=== PATIENT | female | born 1990 | race American Indian/Alaskan Native ===

== ENCOUNTER 2016-11-03 11:34 | Emergency (ER) | payer MEDICAID ==
[2016-11-03 11:47] VITALS: BP 124/81
--- NOTE | 2016-11-03 14:33 | Emergency Department Report ---
Abscess Boil HPI - HPI Chief Complaint: Skin/Abscess/Foreign Body Stated Complaint: RT BREAST SORE Time Seen by Provider: 11/03/16 13:50 Duration: 2 Days Location: Chest Severity: None History: No Fever, No Pain, No Purulent Drainage, No Numbness, No Foreign Body, No Previous History, No Insect Bite HPI: This is a 26 old female well-nourished with nontoxic or ill in appearance that complains of a cyst to her right chest area for the past 2 days. Patient stated history of a cyst to the abdomen area that was I&D. Patient denies any pus, drainage, fever, chills, pain, numbness or sensation extremities. Patient denies any chest pain or shortness of breath. Denies abdominal pain. Patient stated allergies to clindamycin, sulfa, and vancomycin. Home Medications: Previous Rx's Medication Instructions Recorded Last Taken Type Cephalexin [Keflex] 500 mg PO Q12HR 5 Days 11/03/16 Unknown Rx Allergies/Adverse Reactions: Allergies Allergy/AdvReac Type Severity Reaction Status Date / Time clindamycin AdvReac Hives Verified 11/03/16 11:49 Sulfa (Sulfonamide AdvReac Headache Verified 11/03/16 11:49 Antibiotics) vancomycin AdvReac Shortness Verified 11/03/16 11:49 of Breath ED Review of Systems ROS: Stated complaint: RT BREAST SORE Other details as noted in HPI Constitutional: denies: chills, fever Eyes: denies: eye pain, eye discharge, vision change ENT: denies: ear pain, throat pain Respiratory: denies: cough, shortness of breath, wheezing Cardiovascular: denies: chest pain, palpitations Endocrine: no symptoms reported Gastrointestinal: denies: abdominal pain, nausea, diarrhea Genitourinary: denies: urgency, dysuria, discharge Musculoskeletal: denies: back pain, joint swelling, arthralgia Skin: denies: rash, lesions Neurological: denies: headache, weakness, paresthesias Psychiatric: denies: anxiety, depression Hematological/Lymphatic: denies: easy bleeding, easy bruising ED Past Medical Hx - Past Medical History Previous Medical History?: No - Surgical History Past Surgical History?: Yes Additional Surgical History: x2 - Social History Smoking Status: Current Every Day Smoker Substance Use Type: None - Medications Home Medications: Home Medications Medication Instructions Recorded Confirmed Last Taken Type Cephalexin [Keflex] 500 mg PO Q12HR 5 Days 11/03/16 Unknown Rx ED Abscess Boil Physical Exam - Exam General: Vital signs noted. No distress. Alert and acting appropriately. GENERAL: The patient is a well-developed, well-nourished male in no apparent distress. Patient is alert and oriented x3. VITAL SIGNS: Stable HEENT: Head is normocephalic and atraumatic. Extraocular muscles are intact. Pupils are equal, round, and reactive to light and accommodation. Nares appeared normal. Mouth is well hydrated and without lesions. Mucous membranes are moist. Posterior pharynx clear of any exudate or lesions. NECK: Supple. No carotid bruits. No lymphadenopathy or thyromegaly. LUNGS: Clear to auscultation. HEART: Regular rate and rhythm without murmur. ABDOMEN: Soft, nontender, and nondistended. Positive bowel sounds. No hepatosplenomegaly was noted. EXTREMITIES: Without any cyanosis, clubbing, rash, lesions or edema. NEUROLOGIC: Cranial nerves II through XII are grossly intact. PSYCHIATRIC: Normal affect with no suicidal or homicidal ideations. SKIN: No ulceration or induration present. 0.5 cm nodular cyst with slight erythematous and no fluctuance Front/Back of Body, Lg (Color): 1 - 0.5 cm nodular cyst with slight erythematous and no fluctuance Exam: Yes Normal Neurologic Exam, Yes Normal Circulation, No Tenderness, No Fluctuance, No Surrounding Cellulites/Erythema, No Lymphangitis, No Crepitation , No Heart Murmur Exam: A 0.5 cm nodular cyst with no fluctuance to the right chest area underneath breast near the breast janny area. No erythema. No pus. No boil present. No drainage. Nontender to touch. ED Course Vital Signs 11/03/16 11:43 Temperature 98.3 F Pulse Rate 85 Respiratory 18 Rate Blood Pressure 124/81 O2 Sat by Pulse 100 Oximetry Critical care attestation.: If time is entered above; I have spent that time in minutes in the direct care of this critically ill patient, excluding procedure time. ED Medical Decision Making - Medical Decision Making ED course: This is a 26 erythema that presents with a 0.5 cm nodular cyst. 1- after my physical exam, patient has been prescribed Bactrim for 5 days due to hx of multiple I/D of boils. Patient stated she wants to prevent it from becoming bigger and having an I/D. From my physical exam there is no signs of a pus formation that needs to be drained or aspirated. 2- Patient was instrcuted to observe the area carefully for signs of an abscess such as increasing swelling, pus, drainage, redness, fever, chill, and to report back to ER if these symptoms are present. 3- Patient was also instrcuted to follow-up with her PCP in 3-5 days. 4- at time time of discharge, the patient does not seem toxic or ill in appearance. No acute signs of distress noted. Patient agrees to discharge treatment plan of care. No further questions noted by the patient. ED Disposition Clinical Impression: Epidermoid cyst of skin of chest Disposition: DISCHARGED TO HOME OR SELFCARE Is pt being admited?: No Does the pt Need Aspirin: No Condition: Stable Additional Instructions: Observe the area carefully for signs of an abscess such as increasing swelling, pus, drainage, redness, fever, chill, and to report back to ER if these symptoms are present. Follow-up with her primary care doctor in 3-5 days. Take full course of Bactrim as prescribed. Prescriptions: Cephalexin [Keflex] 500 mg PO Q12HR 5 Days Referrals: VIVIANA HERNANDEZ MD [Primary Care Provider] - 3-5 Days [facility] [Outside] - 3-5 Days [facility] [Outside] - 3-5 Days Forms: Work/School Release Form(ED)
== END 2016-11-03 14:57 | disposition home or self-care (01) ==
LOC: ED 11:34
DX: L72.8 Other follicular cysts of the skin and subcutaneous tissue (principal); F17.200 Nicotine dependence, unspecified, uncomplicated
CPT/HCPCS: 99281

== ENCOUNTER 2017-07-22 06:23 | Emergency (ER) | payer MEDICAID ==
[2017-07-22 06:33] VITALS: BP 126/62
--- NOTE | 2017-07-22 09:56 | Emergency Department Report ---
Minor Respiratory - HPI Chief Complaint: Upper Respiratory Infection Stated Complaint: FLU SYMPTOMS Time Seen by Provider: 07/22/17 09:31 Minor Respiratory: Yes Rhinorrhea, Yes Sore Throat (mild), Yes Able to Tolerate Fluids, Yes Fever, No Ear Pain, No Cough, No Sick Contacts, No Hemoptysis, No Chest Pain, No Shortness of Breath Other History: Patient is a 26-year-old [place] female who is presenting with sinus tenderness cough cold congestion for approximate 5 days. Patient states she has had subjective fevers but has not taken her temperature today to know the number. Patient denies nausea vomiting diarrhea or body aches. Patient does have a cough that is productive of clear sputum. ED Review of Systems ROS: Stated complaint: FLU SYMPTOMS Other details as noted in HPI Constitutional: denies: chills, fever Eyes: denies: eye pain, eye discharge, vision change ENT: denies: ear pain, throat pain Respiratory: denies: cough, shortness of breath, wheezing Cardiovascular: denies: chest pain, palpitations Endocrine: no symptoms reported Gastrointestinal: denies: abdominal pain, nausea, diarrhea Genitourinary: denies: urgency, dysuria, discharge Musculoskeletal: denies: back pain, joint swelling, arthralgia Skin: denies: rash, lesions Neurological: denies: headache, weakness, paresthesias Psychiatric: denies: anxiety, depression Hematological/Lymphatic: denies: easy bleeding, easy bruising ED Past Medical Hx - Past Medical History Previous Medical History?: Yes Hx Hypertension: Yes Hx Asthma: Yes - Surgical History Past Surgical History?: Yes Additional Surgical History: x2. - Social History Smoking Status: Current Every Day Smoker Substance Use Type: Alcohol - Medications Home Medications: Home Medications Medication Instructions Recorded Confirmed Last Taken Type Cephalexin [Keflex] 500 mg PO Q12HR 5 Days cap 11/03/16 Unknown Rx Amoxicillin/Potassium Clav 1 each PO BID #20 tablet 07/22/17 Unknown Rx [Augmentin 875-125 Tablet] Fluticasone [Flonase] 1 spray NS QDAY #1 bottle 07/22/17 Unknown Rx HYDROcodone/APAP 5-325 [[place] 1 each PO Q6HR PRN #12 tablet 07/22/17 Unknown Rx 5/325] predniSONE [Deltasone] 20 mg PO QDAY #5 tab 07/22/17 Unknown Rx Minor Respiratory Exam - Exam General: Vital signs noted. No distress. Alert and acting appropriately. HEENT: Yes Moist Mucous Membranes, Yes Frontal Tenderness, Yes Maxillary Tenderness, No Pharyngeal Erythema, No Pharyngeal Exudates, No Rhinorrhea, No Conjuctival Injection Ear: Neither TM Bulge, Neither TM Erythema, Neither EAC Pain, Neither EAC Discharge Neck: Yes Supple, No Adenopathy Lungs: Yes Good Air Exchange, No Wheezes, No [place], No Stridor, No Cough, No Labored Respirations, No Retractions, No Use of Accessory Muscles, No Other Abnormal Lung Sounds Heart: Yes Regular, No Murmur Abdomen: Yes Normal Bowel Sounds, No Tenderness, No Peritoneal Signs Skin: No Rash, No Edema Neurologic: Alert and oriented, no deficits. Musculoskeletal: Unremarkable. ED Course Vital Signs 07/22/17 07/22/17 06:29 06:57 Temperature 98.0 F 98.0 F Pulse Rate 92 H 90 Respiratory 18 18 Rate Blood Pressure 126/62 126/62 O2 Sat by Pulse 100 99 Oximetry ED Medical Decision Making - Medical Decision Making Patient is a 26-year-old black female who is presenting with acute sinusitis type symptoms. Patient's lungs cleared and I believe the patient has pneumonia her vital signs were within normal limits. Patient will be started on Augmentin and other meds for symptomatically relief be discharged home to stop. Critical care attestation.: If time is entered above; I have spent that time in minutes in the direct care of this critically ill patient, excluding procedure time. ED Disposition Clinical Impression: Acute sinusitis Qualifiers: Sinusitis location: maxillary Recurrence: non-recurrent Qualified Code(s): J01.00 - Acute maxillary sinusitis, unspecified Disposition: - TO HOME OR SELFCARE Is pt being admited?: No Does the pt Need Aspirin: No Condition: Stable Instructions: Sinusitis (ED) Prescriptions: Amoxicillin/Potassium Clav [Augmentin 875-125 Tablet] 1 each PO BID #20 tablet Fluticasone [Flonase] 1 spray NS QDAY #1 bottle HYDROcodone/APAP 5-325 [[place] 5/325] 1 each PO Q6HR PRN #12 tablet PRN Reason: Pain predniSONE [Deltasone] 20 mg PO QDAY #5 tab Referrals: PRIMARY CARE,MD [Primary Care Provider] - 3-5 Days
== END 2017-07-22 10:02 | disposition home or self-care (01) ==
LOC: ED 06:23
DX: J01.00 Acute maxillary sinusitis, unspecified (principal); I10 Essential (primary) hypertension; J45.909 Unspecified asthma, uncomplicated; F17.200 Nicotine dependence, unspecified, uncomplicated; Z88.2 Allergy status to sulfonamides; Z88.1 Allergy status to other antibiotic agents

== ENCOUNTER 2017-08-17 08:42 | Emergency (ER) | payer MEDICAID, OTHER ==
[2017-08-17 09:23] LABS: Basophils # (Auto) 0.1 K/mm3 (0.0-0.1); Basophils % (Auto) 0.8 % (0.0-1.8); Eosinophils # (Auto) 0.1 K/mm3 (0.0-0.4); Eosinophils % (Auto) 1.5 % (0.0-4.3); Hematocrit 40.1 % (30.3-42.9); Lymphocytes # (Auto) 2.2 K/mm3 (1.2-5.4); Lymphocytes % (Auto) 34.8 % (13.4-35.0); Mean Corpuscular HGB Conc 32 % (30-34); Mean Corpuscular Hemoglobin 28 pg (28-32); Mean Corpuscular Volume 86 fl (79-97); Monocytes # (Auto) 0.5 K/mm3 (0.0-0.8); Monocytes % (Auto) 7.7 % (0.0-7.3); Platelet Count 245 K/mm3 (140-440); Red Blood Count 4.65 M/mm3 (3.65-5.03); Red Cell Distribution Width 14.3 % (13.2-15.2)
[2017-08-17 09:41] LABS: Alanine Aminotransferase 7 units/L (7-56); Albumin 3.8 g/dL (3.9-5); BUN/Creatinine Ratio 15; Blood Urea Nitrogen 9 mg/dL (7-17); Calcium 8.9 mg/dL (8.4-10.2); Hemolysis Index 7
[2017-08-17 09:43] LABS: Bacteria,Urine 1+ /HPF (Negative); Bilirubin,Urine NEG (Negative); Blood,Urine NEG (Negative); Color,Urine Straw (Yellow); Protein,Urine <15 mg/dL mg/dL (Negative); Urobilinogen,Urine < 2.0 mg/dL (<2.0); WBC,Urine < 1.0 /HPF (0.0-6.0)
--- NOTE | 2017-08-17 10:44 | Emergency Department Report ---
ED Abdominal Pain HPI - General Chief Complaint: Abdominal Pain Stated Complaint: ABD PAIN Time Seen by Provider: 08/17/17 10:43 Source: patient Mode of arrival: Wheelchair Limitations: No Limitations - History of Present Illness Initial Comments: The patient is actually not complaining of abdominal pain. She states that she has some discomfort in her lumbar area of her back. She also complains of multiple joint aches. These symptoms have been going on for a year. She states that there is a positive family history of arthritis in both her mother and her grandmother. She denies any nausea vomiting fever or diarrhea or GI or symptoms. His had no recent fever or chills. She states that she's had symptoms for more than a year. She does not have a primary care provider. MD Complaint: other -: year(s) Location: R flank Radiation: none Migration to: no migration Severity: mild, moderate Quality: aching Consistency: intermittent, now resolved Improves With: nothing Worsens With: nothing - Related Data Previous Rx's Medication Instructions Recorded Last Taken Type Cephalexin [Keflex] 500 mg PO Q12HR 5 Days cap 11/03/16 Unknown Rx Amoxicillin/Potassium Clav 1 each PO BID #20 tablet 07/22/17 Unknown Rx [Augmentin 875-125 Tablet] Fluticasone [Flonase] 1 spray NS QDAY #1 bottle 07/22/17 Unknown Rx HYDROcodone/APAP 5-325 [[place] 1 each PO Q6HR PRN #12 tablet 07/22/17 Unknown Rx 5/325] predniSONE [Deltasone] 20 mg PO QDAY #5 tab 07/22/17 Unknown Rx Naproxen [Naprosyn] 500 mg PO Q12H PRN #14 tablet 08/17/17 Unknown Rx traMADol [Ultram] 50 mg PO Q6HR PRN #14 tablet 08/17/17 Unknown Rx Allergies Allergy/AdvReac Type Severity Reaction Status Date / Time clindamycin AdvReac Hives Verified 11/03/16 11:49 Sulfa (Sulfonamide AdvReac Headache Verified 11/03/16 11:49 Antibiotics) vancomycin AdvReac Shortness Verified 11/03/16 11:49 of Breath ED Review of Systems ROS: Stated complaint: ABD PAIN Other details as noted in HPI Constitutional: denies: chills, fever Eyes: denies: eye pain, eye discharge, vision change ENT: denies: ear pain, throat pain Respiratory: denies: cough, shortness of breath, wheezing Cardiovascular: denies: chest pain, palpitations Endocrine: no symptoms reported Gastrointestinal: abdominal pain. denies: nausea, diarrhea Genitourinary: as per HPI, other. denies: urgency, dysuria, frequency, hematuria, discharge Musculoskeletal: arthralgia. denies: back pain, joint swelling Skin: denies: rash, lesions Neurological: denies: headache, weakness, paresthesias Psychiatric: denies: anxiety, depression Hematological/Lymphatic: denies: easy bleeding, easy bruising ED Past Medical Hx - Past Medical History Previous Medical History?: Yes Hx Hypertension: Yes (During ) Hx Asthma: Yes - Surgical History Additional Surgical History: x2. - Social History Smoking Status: Current Every Day Smoker Substance Use Type: Alcohol - Medications Home Medications: Home Medications Medication Instructions Recorded Confirmed Last Taken Type Cephalexin [Keflex] 500 mg PO Q12HR 5 Days cap 11/03/16 Unknown Rx Amoxicillin/Potassium Clav 1 each PO BID #20 tablet 07/22/17 Unknown Rx [Augmentin 875-125 Tablet] Fluticasone [Flonase] 1 spray NS QDAY #1 bottle 07/22/17 Unknown Rx HYDROcodone/APAP 5-325 [[place] 1 each PO Q6HR PRN #12 tablet 07/22/17 Unknown Rx 5/325] predniSONE [Deltasone] 20 mg PO QDAY #5 tab 07/22/17 Unknown Rx Naproxen [Naprosyn] 500 mg PO Q12H PRN #14 tablet 08/17/17 Unknown Rx traMADol [Ultram] 50 mg PO Q6HR PRN #14 tablet 08/17/17 Unknown Rx ED Physical Exam - General Limitations: No Limitations General appearance: alert, in no apparent distress - Head Head exam: Present: atraumatic, normocephalic - Eye Eye exam: Present: normal appearance, PERRL, EOMI. Absent: scleral icterus, conjunctival injection - ENT ENT exam: Present: mucous membranes moist - Neck Neck exam: Present: normal inspection - Respiratory Respiratory exam: Present: normal lung sounds bilaterally. Absent: respiratory distress - Cardiovascular Cardiovascular Exam: Present: regular rate, normal rhythm. Absent: systolic murmur, diastolic murmur, rubs, gallop - GI/Abdominal GI/Abdominal exam: Present: soft, normal bowel sounds. Absent: distended, tenderness, guarding, rebound, rigid, organomegaly, mass, bruit, pulsatile mass , hernia - Extremities Exam Extremities exam: Present: normal inspection (no active joints no joint swelling.) - Back Exam Back exam: Present: normal inspection. Absent: CVA tenderness (R), CVA tenderness (L), muscle spasm, paraspinal tenderness, vertebral tenderness - Neurological Exam Neurological exam: Present: alert, oriented X3, CN II-XII intact. Absent: motor sensory deficit - Psychiatric Psychiatric exam: Present: normal affect, normal mood - Skin Skin exam: Present: warm, dry, intact, normal color. Absent: rash ED Course Vital Signs 08/17/17 08:43 Temperature 98.2 F Pulse Rate 72 Respiratory 16 Rate Blood Pressure 146/72 O2 Sat by Pulse 100 Oximetry ED Medical Decision Making - Lab Data Result diagrams: 08/17/17 09:05 08/17/17 09:05 Laboratory Results - last 24 hr 08/17/17 08/17/17 08/17/17 08:49 09:05 09:05 WBC 6.5 RBC 4.65 Hgb 13.0 Hct 40.1 MCV 86 MCH 28 MCHC 32 RDW 14.3 Plt Count 245 Lymph % (Auto) 34.8 [place] % (Auto) 7.7 H Eos % (Auto) 1.5 Baso % (Auto) 0.8 Lymph # 2.2 [place] # 0.5 Eos # 0.1 Baso # 0.1 Seg Neutrophils % 55.2 Seg Neutrophils # 3.6 Sodium 139 Potassium 4.2 Chloride 101.1 Carbon Dioxide 26 Anion Gap 16 BUN 9 Creatinine 0.6 L Estimated GFR > 60 BUN/Creatinine Ratio 15 Glucose 88 POC Glucose 96 Calcium 8.9 Total Bilirubin 0.20 AST 10 ALT 7 Alkaline Phosphatase 74 Total Protein 7.0 Albumin 3.8 L Albumin/Globulin Ratio 1.2 Lipase HCG, Qual Urine Color Urine Turbidity Urine pH Ur Specific [place] Urine Protein Urine Glucose (UA) Urine Ketones Urine Blood Urine Nitrite Urine Bilirubin Urine Urobilinogen Ur Leukocyte Esterase Urine WBC (Auto) Urine RBC (Auto) U Epithel Cells (Auto) Urine Bacteria (Auto) 08/17/17 08/17/17 08/17/17 09:05 09:05 09:09 WBC RBC Hgb Hct MCV MCH MCHC RDW Plt Count Lymph % (Auto) [place] % (Auto) Eos % (Auto) Baso % (Auto) Lymph # [place] # Eos # Baso # Seg Neutrophils % Seg Neutrophils # Sodium Potassium Chloride Carbon Dioxide Anion Gap BUN Creatinine Estimated GFR BUN/Creatinine Ratio Glucose POC Glucose Calcium Total Bilirubin AST ALT Alkaline Phosphatase Total Protein Albumin Albumin/Globulin Ratio Lipase 44 HCG, Qual Negative Urine Color Straw Urine Turbidity Clear Urine pH 6.0 Ur Specific [place] 1.003 Urine Protein <15 mg/dl Urine Glucose (UA) Neg Urine Ketones Neg Urine Blood Neg Urine Nitrite Neg Urine Bilirubin Neg Urine Urobilinogen < 2.0 Ur Leukocyte Esterase Neg Urine WBC (Auto) < 1.0 Urine RBC (Auto) 1.0 U Epithel Cells (Auto) 2.0 Urine Bacteria (Auto) 1+ 08/17/17 09:58 WBC RBC Hgb Hct MCV MCH MCHC RDW Plt Count Lymph % (Auto) [place] % (Auto) Eos % (Auto) Baso % (Auto) Lymph # [place] # Eos # Baso # Seg Neutrophils % Seg Neutrophils # Sodium Potassium Chloride Carbon Dioxide Anion Gap BUN Creatinine Estimated GFR BUN/Creatinine Ratio Glucose POC Glucose 93 Calcium Total Bilirubin AST ALT Alkaline Phosphatase Total Protein Albumin Albumin/Globulin Ratio Lipase HCG, Qual Urine Color Urine Turbidity Urine pH Ur Specific [place] Urine Protein Urine Glucose (UA) Urine Ketones Urine Blood Urine Nitrite Urine Bilirubin Urine Urobilinogen Ur Leukocyte Esterase Urine WBC (Auto) Urine RBC (Auto) U Epithel Cells (Auto) Urine Bacteria (Auto) Critical care attestation.: If time is entered above; I have spent that time in minutes in the direct care of this critically ill patient, excluding procedure time. ED Disposition Clinical Impression: Arthralgia Qualifiers: Joint pain location: unspecified Qualified Code(s): M25.50 - Pain in unspecified joint Lower back pain Qualifiers: Chronicity: chronic Back pain laterality: unspecified Sciatica presence: without sciatica Qualified Code(s): M54.5 - Low back pain; G89.29 - Other chronic pain Disposition: TO HOME OR SELFCARE Is pt being admited?: No Does the pt Need Aspirin: No Condition: Stable Instructions: Abdominal Pain (ED), Urinary Tract Infection in Women (ED) Additional Instructions: There are number of things to follow up. YOU DO NEED A GLOVE STITCHER DOCTOR AND A PRIMARY CARE PHYSICIAN. THERE IS A LOCAL PRIMARY CARE CLINIC. Rx for discomfort and antibiotic for urinary tract infection. Return if any increased problem. I would elevate and rest the arm. Avoid repetitive activity. Return to the emergency department any acute change or worsening as needed. Follow up on your urine culture test in 2-3 days Prescriptions: Naproxen [Naprosyn] 500 mg PO Q12H PRN #14 tablet PRN Reason: Pain traMADol [Ultram] 50 mg PO Q6HR PRN #14 tablet PRN Reason: Pain Referrals: PRIMARY CARE, [Primary Care Provider] - 3-5 Days BRENDA ONEAL MD [Staff Physician] - 3-5 Days PRISCILA DOLAN MD [Staff Physician] - 3-5 Days [facility] [Provider Group] - 2-3 Days Time of Disposition: 11:24
[2017-08-17] MEDS ORDERED: XYLOCAINE 1% MPF 5 mL INFILTRATI ONE (11:09)
[2017-08-17] MEDS ORDERED: ROCEPHIN IM ONE (11:09)
[2017-08-17] MEDS ORDERED: NORCO 5/325 PO ONE ×2 (11:10→11:34)
[2017-08-17 11:44] VITALS: BP 126/60
== END 2017-08-17 12:26 | disposition home or self-care (01) ==
LOC: ED 08:42
DX: M54.5 Low back pain (principal); M25.50 Pain in unspecified joint; F17.200 Nicotine dependence, unspecified, uncomplicated
CPT/HCPCS: 36415; 80053; 81001; 82962; 83690; 84703; 85025; J0696

== ENCOUNTER 2017-12-27 09:41 | Emergency (ER) | payer MEDICAID ==
[2017-12-27 09:55] VITALS: BP 126/55
[2017-12-27 11:28] LABS: Amorphous Crystals,Urine Few; Mucus,Urine FEW /HPF; WBC,Urine < 1.0 /HPF (0.0-6.0)
[2017-12-27 11:29] LABS: Bilirubin,Urine NEG (Negative); Blood,Urine MOD (Negative); Color,Urine Yellow (Yellow); Protein,Urine <15 mg/dL mg/dL (Negative); Urobilinogen,Urine < 2.0 mg/dL (<2.0)
--- NOTE | 2017-12-27 11:34 | Emergency Department Report ---
ED HPI - General Chief complaint: Vaginal Bleeding Stated complaint: VAG BLEED Time Seen by Provider: 12/27/17 11:11 Source: patient Mode of arrival: Wheelchair Limitations: No Limitations - History of Present Illness Initial comments: Patient is a 27-year-old female who is presenting with vaginal bleeding. Patient states that since this spotting. Patient states is lower abdominal crampiness as well as a 5 out of 10 in severity. Patient states symptoms started very mildly approximately ago and have persisted. Patient take a positive test at home. Patient has not had care ultrasound done at this time. Patient worried that she is having a miscarriage. - Related Data Home Medications Medication Instructions Recorded Confirmed Last Taken Duloxetine HCl [Cymbalta] 60 mg PO DAILY 09/30/17 09/30/17 09/30/17 Ergocalciferol [Vitamin D2] 1 cap PO QWEEK 09/30/17 09/30/17 Unknown Previous Rx's Medication Instructions Recorded Last Taken Type Acetaminophen [Acetaminophen TAB] 650 mg PO Q6H PRN 30 Days #30 10/02/17 Unknown Rx tablet Pantoprazole [Protonix TAB] 40 mg PO QDAY #30 tablet 10/02/17 Unknown Rx Allergies Allergy/AdvReac Type Severity Reaction Status Date / Time clindamycin AdvReac Hives Verified 09/30/17 10:07 Sulfa (Sulfonamide AdvReac Headache Verified 09/30/17 10:07 Antibiotics) vancomycin AdvReac Shortness Verified 09/30/17 10:07 of Breath ED Review of Systems ROS: Stated complaint: VAG BLEED Other details as noted in HPI Comment: All other systems reviewed and negative ED Past Medical Hx - Past Medical History Hx Hypertension: Yes (During ) Hx Congestive Heart Failure: No Hx Diabetes: No Hx Asthma: Yes Hx COPD: No Additional medical history: Lupus - Surgical History Additional Surgical History: x2. - Social History Smoking Status: Former Smoker Substance Use Type: None - Medications Home Medications: Home Medications Medication Instructions Recorded Confirmed Last Taken Type Duloxetine HCl [Cymbalta] 60 mg PO DAILY 09/30/17 09/30/17 09/30/17 History Ergocalciferol [Vitamin D2] 1 cap PO QWEEK 09/30/17 09/30/17 Unknown History Acetaminophen [Acetaminophen TAB] 650 mg PO Q6H PRN 30 Days #30 10/02/17 Unknown Rx tablet Pantoprazole [Protonix TAB] 40 mg PO QDAY #30 tablet 10/02/17 Unknown Rx ED Physical Exam - General Limitations: No Limitations General appearance: alert, in no apparent distress - Head Head exam: Present: atraumatic, normocephalic - Eye Eye exam: Present: normal appearance - ENT ENT exam: Present: mucous membranes moist - Neck Neck exam: Present: normal inspection - Respiratory Respiratory exam: Present: normal lung sounds bilaterally. Absent: respiratory distress, wheezes, rales, rhonchi - Cardiovascular Cardiovascular Exam: Present: regular rate, normal rhythm. Absent: systolic murmur, diastolic murmur, rubs, gallop - GI/Abdominal GI/Abdominal exam: Present: soft, tenderness, normal bowel sounds. Absent: distended, guarding, rebound, rigid - Extremities Exam Extremities exam: Present: normal inspection - Back Exam Back exam: Present: normal inspection - Neurological Exam Neurological exam: Present: alert, oriented X3 - Psychiatric Psychiatric exam: Present: normal affect, normal mood - Skin Skin exam: Present: warm, dry, intact, normal color. Absent: rash ED Course Vital Signs 12/27/17 09:52 Temperature 98.6 F Pulse Rate 70 Respiratory 16 Rate Blood Pressure 126/55 O2 Sat by Pulse 99 Oximetry ED Medical Decision Making - Radiology Data interpreted by me: Unofficial report after 3 hours still not returned however I was able to look at the transvaginal ultrasound patient does have a gestational sac this measuring 5 weeks 5 days I did not appreciate a pole. - Medical Decision Making The head lengthy discussion about bleeding in early with the patient. Patient was given her a beta hCG number and was told that N2 to 3 days this number should double there is a viable . Patient is in the trevizo zone as far as seeing a viable IUP. Patient instructed to return on Friday for repeat beta hCG. Patient will have bed rest over through the weekend. Patient instructed to return if her bleeding gets much more severe Critical care attestation.: If time is entered above; I have spent that time in minutes in the direct care of this critically ill patient, excluding procedure time. ED Disposition Clinical Impression: Threatened miscarriage Disposition: - TO HOME OR SELFCARE Is pt being admited?: No Does the pt Need Aspirin: No Condition: Stable Additional Instructions: Urine beta-hCG number today was 6900. Please return Friday to have this rechecked. If you're number has doubled in that time that means that it is very suggestive that you have a viable . If you number is declining it confirms that you have had a miscarriage. Please use bed rest. Please return if you bleeding gets significantly heavier or you have any lightheadedness. Referrals: PRIMARY CARE, [Primary Care Provider] - 3-5 Days
--- NOTE | 2017-12-27 16:01 | Ultrasound Report ---
FINAL REPORT PROCEDURE: US OB transabdominal and TRANSVAGINAL TECHNIQUE: Real-time transabdominal and transvaginal sonography of the uterus, placenta, amniotic fluid, adnexa, and fetus was performed with image documentation. Measurements were obtained to determine age/size. M-mode Doppler was used to document heartbeat. CPT 13461 and 12520 HISTORY: preg with vag bleeding COMPARISON: No prior studies are available for comparison. FINDINGS: The uterus measures 8.4 x 5.7 x 6.4 centimeters. There is an intrauterine cystic structure, which may be an early gestational sac. No yolk sac or pole are identified. Mean sac diameter measures 9.5 millimeters, which would correlate to a gestational age of 5 weeks 5 days. Cervix: Normal. Right Ovary: Unremarkable Left Ovary: Within the left ovary there is a solid appearing rounded structure measuring up to 1.7 centimeters Estimated delivery date: 08/24/1018, based on mean sac diameter IMPRESSION: Intrauterine cystic structure may be a gestational sac. No pole or yolk sac are identified however. Based on mean sac diameter, gestational age is 5 weeks 5 days. Recommend sonographic and clinical follow-up to evaluate and exclude ectopic . 1.7 centimeter solid-appearing left ovarian lesion.
--- NOTE | 2017-12-27 16:01 | Ultrasound Report ---
FINAL REPORT US OB transabdominal and TRANSVAGINAL TECHNIQUE: Real-time transabdominal and transvaginal sonography of the uterus, placenta, amniotic fluid, adnexa, and fetus was performed with image documentation. Measurements were obtained to determine age/size. M-mode Doppler was used to document heartbeat. CPT 93569 and 15033 HISTORY: preg with vag bleeding COMPARISON: No prior studies are available for comparison. FINDINGS: The uterus measures 8.4 x 5.7 x 6.4 centimeters. There is an intrauterine cystic structure, which may be an early gestational sac. No yolk sac or pole are identified. Mean sac diameter measures 9.5 millimeters, which would correlate to a gestational age of 5 weeks 5 days. Cervix: Normal. Right Ovary: Unremarkable Left Ovary: Within the left ovary there is a solid appearing rounded structure measuring up to 1.7 centimeters Estimated delivery date: 08/24/1018, based on mean sac diameter IMPRESSION: Intrauterine cystic structure may be a gestational sac. No pole or yolk sac are identified however. Based on mean sac diameter, gestational age is 5 weeks 5 days. Recommend sonographic and clinical follow-up to evaluate and exclude ectopic . 1.7 centimeter solid-appearing left ovarian lesion. PROCEDURE: TECHNIQUE: HISTORY: COMPARISON: FINDINGS: IMPRESSION:
== END 2017-12-27 15:26 | disposition home or self-care (01) ==
LOC: ED 09:41
DX: O20.0 Threatened abortion (principal); J45.909 Unspecified asthma, uncomplicated; M32.9 Systemic lupus erythematosus, unspecified; Z88.1 Allergy status to other antibiotic agents; Z87.891 Personal history of nicotine dependence; Z3A.01 Less than 8 weeks gestation of pregnancy; Z88.2 Allergy status to sulfonamides
CPT/HCPCS: 36415; 76801; 76817; 81001; 84702; 86900; 86901

== ENCOUNTER 2017-12-29 07:16 | Emergency (ER) | payer MEDICAID ==
[2017-12-29 07:26] VITALS: BP 112/44
--- NOTE | 2017-12-29 08:36 | Emergency Department Report ---
ED HPI - General Chief complaint: Medical Clearance Stated complaint: POSS MISCARRIAGE Time Seen by Provider: 12/29/17 08:11 Source: patient Mode of arrival: Ambulatory Limitations: No Limitations - History of Present Illness Initial comments: This is a 27-year-old -[place] female who presents for repeat hCG level. Patient reports coming in for evaluation of possible miscarriage last Friday in this ER. She was told to return in 2-3 days to have repeat hCG to rule out miscarriage. Patient states she started bleeding one week ago and initially started out with spotting but as the week progressed the color changed to dark color when she wiped. She has not had to wear jaclyn pads at this time and denies clot passage. She is having some low back pain with intermittent abdominal cramping that is about 4 out of 10 on pain scale. MD Complaint: vaginal bleeding Onset/Timin -: week(s) Location: pelvis Radiation: back (bilateral low back) Severity: mild Severity scale (0 -10): 4 Quality: cramping, aching Consistency: intermittent Improves with: none Worsens with: none Associated symptoms: vaginal bleeding Vaginal bleeding: light :: Yes Number of weeks : 5 OB History - Current : no complications OB History - Previous Pregnancies: no complications Last menstrual period: 11/13/17 - Related Data : 4 Para: 2 Ab: 1 Home Medications Medication Instructions Recorded Confirmed Last Taken Duloxetine HCl [Cymbalta] 60 mg PO DAILY 09/30/17 09/30/17 09/30/17 Ergocalciferol [Vitamin D2] 1 cap PO QWEEK 09/30/17 09/30/17 Unknown Previous Rx's Medication Instructions Recorded Last Taken Type Acetaminophen [Acetaminophen TAB] 650 mg PO Q6H PRN 30 Days #30 10/02/17 Unknown Rx tablet Pantoprazole [Protonix TAB] 40 mg PO QDAY #30 tablet 10/02/17 Unknown Rx Allergies Allergy/AdvReac Type Severity Reaction Status Date / Time clindamycin AdvReac Hives Verified 09/30/17 10:07 Sulfa (Sulfonamide AdvReac Headache Verified 09/30/17 10:07 Antibiotics) vancomycin AdvReac Shortness Verified 09/30/17 10:07 of Breath ED Review of Systems ROS: Stated complaint: POSS MISCARRIAGE Other details as noted in HPI Constitutional: denies: chills, fever Respiratory: denies: cough, shortness of breath, wheezing Cardiovascular: denies: chest pain, palpitations Gastrointestinal: abdominal pain (intermittent cramping). denies: nausea, vomiting, diarrhea Genitourinary: hematuria. denies: urgency, dysuria, discharge Musculoskeletal: back pain (bilateral low back pain). denies: joint swelling, arthralgia Skin: denies: rash, lesions Neurological: denies: headache, weakness, paresthesias Psychiatric: denies: anxiety, depression ED Past Medical Hx - Past Medical History Hx Hypertension: Yes (During ) Hx Congestive Heart Failure: No Hx Diabetes: No Hx Asthma: Yes Hx COPD: No Additional medical history: Lupus - Surgical History Additional Surgical History: x2. - Social History Smoking Status: Former Smoker Substance Use Type: None - Medications Home Medications: Home Medications Medication Instructions Recorded Confirmed Last Taken Type Duloxetine HCl [Cymbalta] 60 mg PO DAILY 09/30/17 09/30/17 09/30/17 History Ergocalciferol [Vitamin D2] 1 cap PO QWEEK 09/30/17 09/30/17 Unknown History Acetaminophen [Acetaminophen TAB] 650 mg PO Q6H PRN 30 Days #30 10/02/17 Unknown Rx tablet Pantoprazole [Protonix TAB] 40 mg PO QDAY #30 tablet 10/02/17 Unknown Rx ED Physical Exam - General Limitations: No Limitations General appearance: alert, in no apparent distress - Respiratory Respiratory exam: Present: normal lung sounds bilaterally. Absent: respiratory distress - Cardiovascular Cardiovascular Exam: Present: regular rate, normal rhythm. Absent: systolic murmur, diastolic murmur, rubs, gallop - GI/Abdominal GI/Abdominal exam: Present: soft, normal bowel sounds - Back Exam Back exam: Present: normal inspection - Neurological Exam Neurological exam: Present: alert, oriented X3 - Psychiatric Psychiatric exam: Present: normal affect, normal mood ED Course Vital Signs 12/29/17 07:23 Temperature 98.7 F Pulse Rate 72 Respiratory 16 Rate Blood Pressure 112/44 O2 Sat by Pulse 100 Oximetry ED Medical Decision Making - Medical Decision Making This is a 27-year-old -[place] female Presents for repeat hCG to rule out threatened miscarriage. Patient was examined by me. Vitals are normal and patient is in no acute distress. Obtained a serum hCG Quant. Serum hCG is 7829 , which is greater than December 27, hcg 6902. Patient informed of results. Patient will follow-up with [facility] in 3-5 days. Plan discussed with patient to discharge home. Patient discharged home in stable condition. Follow up with OB/ [facility] in 2-3 days. Critical care attestation.: If time is entered above; I have spent that time in minutes in the direct care of this critically ill patient, excluding procedure time. ED Disposition Clinical Impression: Threatened miscarriage Vaginal discharge during Qualifiers: Trimester: first trimester Qualified Code(s): O26.891 - Other specified related conditions, first trimester Disposition: - TO HOME OR SELFCARE Is pt being admited?: No Does the pt Need Aspirin: No Condition: Stable Instructions: Threatened Miscarriage (ED) Additional Instructions: Take [id number] vitamins. Please inform [facility] SUPER[facility] serum hCG quant 7829 on this visit. Follow-up with [facility] SUPERVISOR in 2-5 days. Referrals: SIMONA COTTO MD [Primary Care Provider] - 3-5 Days [facility] [Provider Group] - 3-5 Days [facility] [Provider Group] - 3-5 Days Time of Disposition: 08:53 Print Language: UKRAINIAN
== END 2017-12-29 09:32 | disposition home or self-care (01) ==
LOC: ED 07:16
DX: O20.0 Threatened abortion (principal); O16.1 Unspecified maternal hypertension, first trimester; O99.511 Diseases of the respiratory system complicating pregnancy, first trimester; J45.909 Unspecified asthma, uncomplicated; M32.9 Systemic lupus erythematosus, unspecified; Z87.891 Personal history of nicotine dependence; Z3A.01 Less than 8 weeks gestation of pregnancy; Z88.2 Allergy status to sulfonamides; Z88.1 Allergy status to other antibiotic agents
CPT/HCPCS: 36415; 84702; 86900; 86901; 99283

== ENCOUNTER 2018-12-25 06:54 | Emergency (ER) | payer MEDICAID, OTHER ==
[2018-12-25 07:02] VITALS: BP 141/65
[2018-12-25] MEDS ORDERED: IBUPROFEN PO ONE (08:36)
--- NOTE | 2018-12-25 08:50 | Emergency Department Report ---
Upper Extremity - HPI Chief Complaint: Extremity Problem,Nontraumatic Stated Complaint: RT HAND PAIN Time Seen by Provider: 12/25/18 08:12 Upper Extremity: Right Forearm, Right Hand Occurred When: 3 Days Mechanism: Unsure Symptoms: Yes Swelling, No Deformity, No Limited Range of Movement, No Numbness, No Weakness, No Bruising/Ecchymosis, No Laceration or Abrasion Other History: 28-year-old female states that her right arm and hand she could not go to work this morning. 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 She denies any trauma or injury. She has taken nothing for pain. ED Review of Systems ROS: Stated complaint: RT HAND PAIN Other details as noted in HPI Comment: All other systems reviewed and negative ED Past Medical Hx - Past Medical History Previous Medical History?: Yes Hx Hypertension: Yes (During ) Hx Congestive Heart Failure: No Hx Diabetes: No Hx Asthma: Yes Hx COPD: No Additional medical history: herniated disc in neck and bulge in lower back - Surgical History Past Surgical History?: Yes Additional Surgical History: x2. - Social History Smoking Status: Current Every Day Smoker Substance Use Type: None - Medications Home Medications: Home Medications Medication Instructions Recorded Confirmed Last Taken Type Duloxetine HCl [Cymbalta] 60 mg PO DAILY 09/30/17 09/30/17 09/30/17 History Ergocalciferol [Vitamin D2] 1 cap PO QWEEK 09/30/17 09/30/17 Unknown History Acetaminophen [Acetaminophen TAB] 650 mg PO Q6H PRN 30 Days #30 10/02/17 Unknown Rx tablet Pantoprazole [Protonix TAB] 40 mg PO QDAY #30 tablet 10/02/17 Unknown Rx Ibuprofen [Motrin 800 MG tab] 800 mg PO Q8HR #30 tablet 12/25/18 Unknown Rx Upper Extremity Exam - Exam General: Vital signs noted. No distress. Alert and acting appropriately. Head and Torso: No HEENT Abnormality, No Neck Tenderness, No Chest/Lungs Abnormality, No Abdominal Tenderness, No Back Tenderness Shoulder Exam: Yes Normal Range of Motion in Shoulder, No Shoulder Tenderness, No Clavicle Tenderness, No Shoulder Deformity, No AC Joint Tenderness Arm Exam: No Arm/Humerus Tenderness, No Arm Deformity Elbow: No Elbow Tenderness, No Normal Range of Motion in Elbow, No Elbow Deformity Forearm: No Forearm Tenderness, No Forearm Deformity, No Pain with Pronation, No Pain with Supination Wrist: Yes Normal ROM in Wrist, No Wrist Tenderness, No Wrist Deformity, No Snuffbox Tenderness, No Pain with Axial Thumb Compression Hand: Yes Hand Tenderness (mild ), Yes Normal ROM in Digit(s), No Hand Deformity, No Digit Tenderness, No Digit(s) Deformity, No Tendon Dysfunction CMS Exam: Yes Normal Distal Pulses, Yes Normal Capillary Refill, Yes Normal Distal Sensation, No Broken Skin ED Course Vital Signs 12/25/18 06:56 Temperature 98.4 F Pulse Rate 76 Respiratory 16 Rate Blood Pressure 141/65 O2 Sat by Pulse 100 Oximetry ED Medical Decision Making - Medical Decision Making 28-year-old female comes in right-this is true pain. Patient is unaware of any injury. She notes full range of motion. Discussed the patient is ibuprofen 800 mg here and discharged on ibuprofen. Patient verbalized understanding. Critical care attestation.: If time is entered above; I have spent that time in minutes in the direct care of this critically ill patient, excluding procedure time. ED Disposition Clinical Impression: Strain of right forearm Qualifiers: Encounter type: initial encounter Qualified Code(s): S56.911A - Strain of unspecified muscles, fascia and tendons at forearm level, right arm, initial encounter Disposition: DC-01 TO HOME OR SELFCARE Is pt being admited?: No Does the pt Need Aspirin: No Condition: Stable Instructions: Muscle Strain (ED) Additional Instructions: Take medication as prescribed. Follow-up to primary care provider if his symptoms persist or gets worse. Prescriptions: Ibuprofen [Motrin 800 MG tab] 800 mg PO Q8HR #30 tablet Referrals: SIMONA COTTO MD [Primary Care Provider] - 3-5 Days Forms: Work/School Release Form(ED)
== END 2018-12-25 09:05 | disposition home or self-care (01) ==
LOC: ED 06:54
DX: S56.911A Strain of unspecified muscles, fascia and tendons at forearm level, right arm, initial encounter (principal); J45.909 Unspecified asthma, uncomplicated; F17.200 Nicotine dependence, unspecified, uncomplicated; X58.XXXA Exposure to other specified factors, initial encounter; Y93.89 Activity, other specified; Y92.89 Other specified places as the place of occurrence of the external cause; Y99.8 Other external cause status
CPT/HCPCS: 36415; 84703